=== PATIENT | male | born 1935 | race Caucasian/White ===

== ENCOUNTER 2020-11-08 12:02 | Emergency (ER) | payer MEDICARE, BC, OTHER ==
--- NOTE | 2020-11-08 13:03 | EDM.PDOC ---
ED HPI GENERAL MEDICAL PROBLEM - General Chief Complaint: Headache Stated Complaint: FALL 2 WEEKS AGO /HEAD PAIN Time Seen by Provider: 11/08/20 12:14 Source of Information: Reports: Patient, [place] Records, RN Notes Reviewed History Limitations: Reports: No Limitations - History of Present Illness INITIAL COMMENTS - FREE TEXT/NARRATIVE: Patient is an 85-year-old male who presents to the ED for the evaluation of his fall. Patient lives at [facility], and was reported to have an unwitnessed fall around Blanchard time. Patient does have a history of dementia. He st ates however that he slipped when he got out of the shower, then could not get up for some time., that seem to be sporadic. He notes no headache at this time. He did not have pain anywhere, but has been having ongoing issues with pounding headaches, that he points to the right side of his head review of the patient's notes from [facility] state that staff was concerned due to him sleeping most of the time, and they note that he gets belligerent at times. Apparently the patient's reported that he fell around Marli time and hit his head. The notes that she is seeing some behavior changes as well. Patient is on Eliquis, aspirin, and does take donepezil as well. They did try to have him evaluated at the [facility] but they referred him here for further evaluation as he probably needs a head CT. Patient has been appropriate while being in the ER with us. - Related Data Allergies Allergy/AdvReac Type Severity Reaction Status Date / Time No Known Allergies Allergy Verified 11/08/20 12:28 Home Meds: Home Meds Acetaminophen [Tylenol Extra Strength] 1,000 mg PO BID 11/08/20 [History] Apixaban [Eliquis] 5 mg PO BID 11/08/20 [History] Aspirin [Aspirin EC] 81 mg PO DAILY 11/08/20 [History] Cholecalciferol (Vitamin D3) [Vitamin D3] 2,000 intnl unit PO DAILY 11/08/20 [History] Donepezil HCl 10 mg PO BEDTIME 11/08/20 [History] Fexofenadine HCl [Felicia Allergy] 60 mg PO BID 11/08/20 [History] Folic Acid/Multivit-Min/Lutein [Multi-Vitamin Gummies] 2 tab PO DAILY 11/08/20 [History] Metoprolol Tartrate 75 mg PO BID 11/08/20 [History] Sertraline [Zoloft] 50 mg PO DAILY 11/08/20 [History] Tamsulosin HCl 0.4 mg PO DAILY 11/08/20 [History] atorvaSTATin [Lipitor] 40 mg PO BEDTIME 11/08/20 [History] glipiZIDE [Glipizide ER] 2.5 mg PO DAILY 11/08/20 [History] Past Medical History HEENT History: Reports: Other (See Below) Other HEENT History: allergic rhinitis Cardiovascular History: Reports: Afib, CAD, Heart Failure, High Cholesterol, Hypertension Genitourinary History: Reports: Prostate Disorder, Other (See Below) Other Genitourinary History: Nephrolithiasis Neurological History: Reports: CVA Psychiatric History: Reports: Dementia Endocrine/Metabolic History: Reports: Diabetes, Type II Hematologic History: Reports: Other (See Below) Other Hematologic History: blood transfusion Dermatologic History: Reports: Other (See Below) Other Dermatologic History: skin disorder - Past Surgical History HEENT Surgical History: Reports: Cataract Surgery Cardiovascular Surgical History: Reports: Coronary Artery Bypass, Other (See Below) Other Cardiovascular Surgeries/Procedures: pacemaker insertion GI Surgical History: Reports: Other (See Below) Other GI Surgeries/Procedures: splenectomy Male Surgical History: Reports: Lithotripsy (ESWL) Musculoskeletal Surgical History: Reports: Other (See Below) Other Musculoskeletal Surgeries/Procedures:: lumbar disc replacement Social & Family History - Tobacco Use Tobacco Use Status *Q: Former Tobacco User Years of Tobacco use: 30 Packs/Tins Daily: 1 Used Tobacco, but Quit: Yes Month/Year Tobacco Last Used: 2009 - Caffeine Use Caffeine Use: Reports: Coffee - Recreational Drug Use Recreational Drug Use: No ED ROS GENERAL - Review of Systems Review Of Systems: Comprehensive ROS is negative, except as noted in HPI. ED EXAM, HEAD INJURY - Physical Exam Exam: See Below Exam Limited By: No Limitations General Appearance: Alert, WD/WN, No Apparent Distress Head: Atraumatic, Normocephalic Nexus Criteria: No: Posterior, Midline Cervical Tenderness, Evidence of Intoxication, Altered Level of Consciousness, Focal Neurological Deficit, Painful Distraction Injuries Eyes: Bilateral Eye: EOMI, Normal Inspection, PERRL Throat/Mouth: Normal Inspection, Normal Lips, Normal Teeth, Normal Gums, Normal Oropharynx, Normal Voice, No Airway Compromise Neck: Non-Tender, Full Range of Motion, Normal Alignment, Normal Inspection Respiratory: No Respiratory Distress, Lungs Clear, Normal Breath Sounds, No Accessory Muscle Use, Chest Non-Tender Cardiovascular: Normal Peripheral Pulses, Regular Rate, Rhythm, No Edema GI/Abdominal Exam: Normal Bowel Sounds, Soft, Non-Tender, No Distention, No Mass Extremities: Normal Inspection, Normal Capillary Refill Neurologic: No Motor/Sensory Deficits, Alert, Normal Mood/Affect, Oriented x 3 Skin: Normal Color, Warm/Dry - Nay Coma Score Best Eye Response (Nay): (4) Open Spontaneously Best Verbal Response (Bethel): (5) Oriented Best Motor Response (Bethel): (6) Obeys Commands Nay Total: 15 Course - Vital Signs Last Recorded V/S: Last Vital Signs Temp 97 F 11/08/20 12:15 Pulse 67 11/08/20 12:15 Resp 18 11/08/20 12:15 BP 137/71 11/08/20 12:15 Pulse Ox 97 11/08/20 12:15 - Orders/Labs/Meds Orders: Active Orders 24 hr Category Date Time Status Head wo Cont [CT] Stat Exams 11/08/20 12:36 Ordered Labs: Laboratory Tests 11/08/20 11/08/20 Range/Units 12:17 12:17 WBC 8.71 (4.23-9.07) K/mm3 RBC 3.86 L (4.63-6.08) M/mm3 Hgb 12.5 L (13.7-17.5) gm/dl Hct 39.0 L (40.1-51.0) % MCV 101.0 H (79.0-92.2) fl MCH 32.4 H (25.7-32.2) pg MCHC 32.1 L (32.2-35.5) g/dl RDW Std Deviation 56.4 H (35.1-43.9) fL Plt Count 274 (163-337) K/mm3 MPV 10.4 (9.4-12.3) fl Neut % (Auto) 48.5 (34.0-67.9) % Lymph % (Auto) 34.1 (21.8-53.1) % Ellsworth % (Auto) 10.3 (5.3-12.2) % Eos % (Auto) 6.3 (0.8-7.0) Baso % (Auto) 0.7 (0.1-1.2) % Neut # (Auto) 4.22 (1.78-5.38) K/mm3 Lymph # (Auto) 2.97 (1.32-3.57) K/mm3 Ellsworth # (Auto) 0.90 H (0.30-0.82) K/mm3 Eos # (Auto) 0.55 H (0.04-0.54) K/mm3 Baso # (Auto) 0.06 (0.01-0.08) K/mm3 Sodium 143 (136-145) mEq/L Potassium 3.8 (3.5-5.1) mEq/L Chloride 106 (98-107) mEq/L Carbon Dioxide 28 (21-32) mEq/L Anion Gap 12.8 (5-15) BUN 25 H (7-18) mg/dL Creatinine 1.6 H (0.7-1.3) mg/dL Est Cr Clr Drug Dosing 32.71 mL/min Estimated GFR (MDRD) 41 (>60) mL/min BUN/Creatinine Ratio 15.6 (14-18) Glucose 164 H (83-115) mg/dL Calcium 8.4 L (8.5-10.1) mg/dL Total Bilirubin 0.2 (0.2-1.0) mg/dL AST 28 (15-37) U/L ALT 27 (16-63) U/L Alkaline Phosphatase 72 (46-116) U/L Total Protein 7.0 (6.4-8.2) g/dl Albumin 3.2 L (3.4-5.0) g/dl Globulin 3.8 gm/dL Albumin/Globulin Ratio 0.8 L (1-2) - Re-Assessments/Exams Free Text/Narrative Re-Assessment/Exam: 11/08/20 13:04 Patient presents to the ED for his ongoing behavioral change after a head injury around Marli time. For today's purposes we will get a head CT to make sure he has no bleed that would be exacerbating things, is likely he could be experiencing postconcussion syndrome, and having irritability and ongoing headaches after this. 11/08/20 13:[address] demonstrates no bleed or other focal abnormalities. There was an old stroke identified but no acute bleeds. Labs are also without remarkable findings. Patient will be discharged back to the [facility] with general recommendations. Departure - Departure Time of Disposition: 13:40 Disposition: Home, Self-Care 01 Condition: Good Clinical Impression: Post concussion syndrome - Discharge Information *PRESCRIPTION DRUG MONITORING PROGRAM REVIEWED*: No *COPY OF PRESCRIPTION DRUG MONITORING REPORT IN PATIENT ALPHONSO: No Instructions: Post-Concussion Syndrome, [id number] Referrals: PCP,Not In Area [Primary Care Provider] - Forms: ED Department Discharge Additional Instructions: You were evaluated in the ED today for your head injury. Your head CT demonstrated no acute bleeds or other focal abnormalities. You have been clinically diagnosed with post concussion syndrome. A concussion can affect how the brain works for a while. It may lead to headaches, changes in alertness, or loss of consciousness. Getting better from a concussion takes days to weeks or even months. You may be irritable, have trouble concentrating, or be unable to remember things. You may also have headaches, dizziness, or blurry vision. These problems will likely recover slowly. You may want to get help from family or friends for making important decisions. You may use acetaminophen (Tylenol) 500mg or 600 mg ibuprofen (Advil/Motrin) Q6H for a headache. You DO NOT need to stay in bed. Light activity around the home is okay. But avoid exercise, lifting weights, or other heavy activity. You may want to keep your diet light if you have nausea and vomiting. Drink fluids to stay hydrated. As long as you have symptoms, avoid sports activities, operating machines, being overly active, doing physical labor. Ask your doctor when you can return to your activities. If symptoms DO NOT go away or are not improving after 2 or 3 weeks, talk to your doctor. Call the doctor if you have: -A stiff neck -Fluid and blood leaking from your nose or ears -A hard time waking up or have become more sleepy -A headache that is getting worse, lasts a long time, or is not relieved by [id number] pain relievers -Fever -Vomiting more than 3 times -Problems walking or talking -Changes in speech (slurred, difficult to understand, does not make sense) -Problems thinking straight -Seizures (jerking your arms or legs without control) -Changes in behavior or unusual behavior -Double vision Please return to the ED if your symptoms change or worsen. Sepsis Event Note (ED) - Evaluation Sepsis Screening Result: No Definite Risk - Focused Exam Vital Signs: Vital Signs Temp Pulse Resp BP Pulse Ox 11/08/20 12:15 97 F 67 18 137/71 97 - My Orders Last 24 Hours: My Active Orders 11/08/20 12:36 Head wo Cont [CT] Stat - Assessment/Plan Last 24 Hours: My Active Orders 11/08/20 12:36 Head wo Cont [CT] Stat
--- NOTE | 2020-11-08 13:46 | CT ---
Head CT Technique: Multiple axial sections through the brain were obtained. Intravenous contrast was not utilized. Comparison: Prior head CT study of 08/30/19. Findings: Ventricles along with basal cisterns and sulci over the convexities are moderately prominent. Old infarcts are seen in the subcortical white matter within the parietal region, a small area of old infarct is noted with the left frontal region as well as within the right parietal region. These findings are all felt to be fairly stable from prior exam. Cerebellum shows evidence of atrophy. There is no findings of intracranial hemorrhage. No midline shift or mass-effect is appreciated. Bone window settings were reviewed which show no acute calvarial abnormality. No acute abnormality within the visualized paranasal sinuses or mastoid sinuses are seen. Impression: 1. Senescent change as noted above which is fairly stable from prior study. 2. Nothing acute is appreciated. Diagnostic code #2
== END 2020-11-08 14:09 | disposition home or self-care (01) ==
LOC: JD.ED 12:02
DX: F07.81 Postconcussional syndrome (principal); I48.91 Unspecified atrial fibrillation; I25.10 Atherosclerotic heart disease of native coronary artery without angina pectoris; I11.0 Hypertensive heart disease with heart failure; I50.9 Heart failure, unspecified; E78.00 Pure hypercholesterolemia, unspecified; N42.9 Disorder of prostate, unspecified; F03.90 Unspecified dementia, unspecified severity, without behavioral disturbance, psychotic disturbance, mood disturbance, and anxiety; E11.9 Type 2 diabetes mellitus without complications; Z87.891 Personal history of nicotine dependence; Z79.01 Long term (current) use of anticoagulants; Z79.82 Long term (current) use of aspirin; Z79.84 Long term (current) use of oral hypoglycemic drugs; Z79.899 Other long term (current) drug therapy; Z86.73 Personal history of transient ischemic attack (TIA), and cerebral infarction without residual deficits
CPT/HCPCS: 36415; 70450; 70450-26; 80053; 85025; 99284-25

== ENCOUNTER 2020-11-30 14:07 | Emergency (ER) | payer MEDICARE, BC ==
[2020-11-30] MEDS ORDERED: Sodium Chloride 0.9% 10 ML Syringe FLUSH PRN ×2 (14:55→15:42)
--- NOTE | 2020-11-30 15:22 | EDM.PDOC ---
ED HPI GENERAL MEDICAL PROBLEM - General Chief Complaint: Genitourinary Problem Stated Complaint: URINARY PROBLEMS Time Seen by Provider: 11/30/20 14:11 Source of Information: Reports: Patient, Old Records, Provider, RN Notes Reviewed History Limitations: Reports: No Limitations - History of Present Illness INITIAL COMMENTS - FREE TEXT/NARRATIVE: Patient is an 85 year old male sent to the ER from [facility] with c/o hematuria as well as worsening of his dementia. He had a urinalysis completed on November 27 which showed 2+ protein, 1+ bili, 3+ occult blood, trace leukocyte esterase. Micro became available on November 28 and showed 75-100 RBCs, 50-75 WBCs, moderate amorphous sediment, moderate bacteria. Patient was started on ciprofloxacin and urine was sent for culture. Thus far, urine has not grown out any bacteria. He was sent to the ER as his urine is becoming more pink in color. His PCP, Ariadna also, reports that the patient had a cystoscopy done about 1 year ago. They did find some growths within his bladder, however it was determined that they were benign. Patient denies any dysuria, flank pain, abdominal pain, fever, chills, nausea, or vomiting. Patient currently resides at [facility] assisted living with his , Whitley. Although, he does have a history of dementia, his confusion has worsened. - Related Data Allergies Allergy/AdvReac Type Severity Reaction Status Date / Time No Known Allergies Allergy Verified 11/30/20 14:22 Home Meds: Home Meds Acetaminophen [Tylenol Extra Strength] 1,000 mg PO BID 11/08/20 [History] Apixaban [Eliquis] 5 mg PO BID 11/08/20 [History] Aspirin [Aspirin EC] 81 mg PO DAILY 11/08/20 [History] Cholecalciferol (Vitamin D3) [Vitamin D3] 2,000 intnl unit PO DAILY 11/08/20 [History] Donepezil HCl 10 mg PO BEDTIME 11/08/20 [History] Fexofenadine HCl [Felicia Allergy] 60 mg PO BID 11/08/20 [History] Folic Acid/Multivit-Min/Lutein [Multi-Vitamin Gummies] 2 tab PO DAILY 11/08/20 [History] Ibuprofen 1 - 2 tab PO Q4HR 11/08/20 [History] Metoprolol Tartrate 75 mg PO BID 11/08/20 [History] Sertraline [Zoloft] 50 mg PO DAILY 11/08/20 [History] Tamsulosin HCl 0.4 mg PO DAILY 11/08/20 [History] glipiZIDE [Glipizide ER] 2.5 mg PO DAILY 11/08/20 [History] atorvaSTATin [Lipitor] 40 mg PO BEDTIME 11/30/20 [History] Past Medical History HEENT History: Reports: Other (See Below) Other HEENT History: allergic rhinitis Cardiovascular History: Reports: Afib, CAD, Heart Failure, High Cholesterol, Hypertension Genitourinary History: Reports: Prostate Disorder, Other (See Below) Other Genitourinary History: Nephrolithiasis Neurological History: Reports: Concussion, CVA Psychiatric History: Reports: Dementia Endocrine/Metabolic History: Reports: Diabetes, Type II Hematologic History: Reports: Other (See Below) Other Hematologic History: blood transfusion Dermatologic History: Reports: Other (See Below) Other Dermatologic History: skin disorder - Past Surgical History HEENT Surgical History: Reports: Cataract Surgery Cardiovascular Surgical History: Reports: Coronary Artery Bypass, Other (See Below) Other Cardiovascular Surgeries/Procedures: pacemaker insertion GI Surgical History: Reports: Other (See Below) Other GI Surgeries/Procedures: splenectomy Male Surgical History: Reports: Lithotripsy (ESWL) Musculoskeletal Surgical History: Reports: Other (See Below) Other Musculoskeletal Surgeries/Procedures:: lumbar disc replacement Social & Family History - Tobacco Use Tobacco Use Status *Q: Former Tobacco User Years of Tobacco use: 10 Packs/Tins Daily: 1 Used Tobacco, but Quit: Yes Month/Year Tobacco Last Used: 11/2014 Second Hand Smoke Exposure: No - Caffeine Use Caffeine Use: Reports: Coffee, Soda - Recreational Drug Use Recreational Drug Use: No ED ROS GENERAL - Review of Systems Review Of Systems: See Below Constitutional: Reports: No Symptoms. Denies: Fever, Chills, Weakness HEENT: Reports: No Symptoms Respiratory: Reports: No Symptoms. Denies: Shortness of Breath, Cough Cardiovascular: Reports: No Symptoms. Denies: Chest Pain Endocrine: Reports: No Symptoms GI/Abdominal: Reports: No Symptoms. Denies: Nausea, Vomiting : Reports: No Symptoms Musculoskeletal: Reports: No Symptoms Skin: Reports: No Symptoms Neurological: Reports: Confusion. Denies: Syncope, Weakness Psychiatric: Reports: No Symptoms Hematologic/Lymphatic: Reports: No Symptoms Immunologic: Reports: No Symptoms ED EXAM, RENAL/ - Physical Exam Exam: See Below Exam Limited By: No Limitations General Appearance: Alert, WD/WN, No Apparent Distress Respiratory/Chest: No Respiratory Distress, Lungs Clear, Normal Breath Sounds, No Accessory Muscle Use, Chest Non-Tender Cardiovascular: Normal Peripheral Pulses, Regular Rate, Rhythm, No Edema, No Gallop, No JVD, No Murmur, No Rub GI/Abdominal: Normal Bowel Sounds, Soft, Non-Tender, No Organomegaly, No Distention, No Abnormal Bruit, No Mass Back Exam: Normal Inspection, Full Range of Motion. No: CVA Tenderness (L), CVA Tenderness (R) Neurological: Alert, CN II-XII Intact, Normal Cognition, Normal Gait, Normal Reflexes, No Motor/Sensory Deficits Psychiatric: Normal Affect, Normal Mood Skin Exam: Warm, Dry, Intact, Normal Color, No Rash Course - Vital Signs Last Recorded V/S: Last Vital Signs Temp 97.4 F 11/30/20 14:12 Pulse 60 11/30/20 16:13 Resp 16 11/30/20 16:13 BP 140/73 11/30/20 16:13 Pulse Ox 98 11/30/20 16:13 - Orders/Labs/Meds Labs: Laboratory Tests 11/30/20 11/30/20 11/30/20 Range/Units 14:30 15:05 15:05 WBC 8.12 (4.23-9.07) K/mm3 RBC 3.88 L (4.63-6.08) M/mm3 Hgb 12.4 L (13.7-17.5) gm/dl Hct 38.4 L (40.1-51.0) % MCV 99.0 H (79.0-92.2) fl MCH 32.0 (25.7-32.2) pg MCHC 32.3 (32.2-35.5) g/dl RDW Std Deviation 53.7 H (35.1-43.9) fL Plt Count 282 (163-337) K/mm3 MPV 10.2 (9.4-12.3) fl Neut % (Auto) 37.8 (34.0-67.9) % Lymph % (Auto) 42.0 (21.8-53.1) % Owsley % (Auto) 13.7 H (5.3-12.2) % Eos % (Auto) 5.4 (0.8-7.0) Baso % (Auto) 1.0 (0.1-1.2) % Neut # (Auto) 3.07 (1.78-5.38) K/mm3 Lymph # (Auto) 3.41 (1.32-3.57) K/mm3 Owsley # (Auto) 1.11 H (0.30-0.82) K/mm3 Eos # (Auto) 0.44 (0.04-0.54) K/mm3 Baso # (Auto) 0.08 (0.01-0.08) K/mm3 Sodium 144 (136-145) mEq/L Potassium 4.1 (3.5-5.1) mEq/L Chloride 108 H (98-107) mEq/L Carbon Dioxide 28 (21-32) mEq/L Anion Gap 12.1 (5-15) BUN 27 H (7-18) mg/dL Creatinine 1.5 H (0.7-1.3) mg/dL Est Cr Clr Drug Dosing 34.89 mL/min Estimated GFR (MDRD) 45 (>60) mL/min BUN/Creatinine Ratio 18.0 (14-18) Glucose 99 (83-115) mg/dL Calcium 9.1 (8.5-10.1) mg/dL Total Bilirubin 0.3 (0.2-1.0) mg/dL AST 23 (15-37) U/L ALT 26 (16-63) U/L Alkaline Phosphatase 67 (46-116) U/L C-Reactive Protein <0.2 (<1.0) mg/dL Total Protein 7.3 (6.4-8.2) g/dl Albumin 3.3 L (3.4-5.0) g/dl Globulin 4.0 gm/dL Albumin/Globulin Ratio 0.8 L (1-2) Urine Color Ramonita H (Yellow) Urine Appearance Cloudy H (Clear) Urine pH 5.5 (5.0-8.0) Ur Specific Chalmers > or = 1.030 (1.005-1.030) Urine Protein 3+ H (Negative) Urine Glucose (UA) Negative (Negative) Urine Ketones Negative (Negative) Urine Occult Blood 3+ H (Negative) Urine Nitrite Negative (Negative) Urine Bilirubin 1+ H (Negative) Urine Urobilinogen 0.2 (0.2-1.0) Ur Leukocyte Esterase Trace H (Negative) Urine RBC >100 H (0-5) /hpf Urine WBC 10-20 H (0-5) /hpf Ur Squamous Epith Cells 0-5 (0-5) /hpf Urine Bacteria Few (FEW) /hpf Urine Mucus Few (FEW) /hpf Meds: Medications Discontinued Medications Generic Name Dose Route Start Last Admin Trade Name Freq PRN Reason Stop Dose Admin Sodium Chloride 500 mls @ 999 mls/hr 11/30/20 15:59 11/30/20 16:12 Normal Saline IV 11/30/20 16:29 999 mls/hr NOW STA Administration Sodium Chloride 100 mls @ 60 mls/hr 11/30/20 16:15 11/30/20 16:04 Normal Saline IV 60 mls/hr ASDIRECTED TAYLOR Administration Iopamidol 100 ml 11/30/20 15:42 11/30/20 16:03 [id number] (61%) IVPUSH 11/30/20 15:43 100 ml ONETIME ONE Administration Sodium Chloride 10 ml 11/30/20 14:55 11/30/20 15:06 Saline Flush FLUSH 10 ml ASDIRECTED PRN Administration Keep Vein Open Sodium Chloride 10 ml 11/30/20 15:42 11/30/20 16:03 Saline Flush FLUSH 10 ml ONETIME PRN Administration Keep Vein Open - Re-Assessments/Exams Free Text/Narrative Re-Assessment/Exam: Pt is a 85 year old male presenting to the ER from [facility] at the request of his PCP, Selena Milton, for evaluation with regard to hematuria. He was started on Cipro 2 days ago for a UTI, but continued to have a significant amount of blood in his urine. He is feeling well and exam is unremarkable. I have ordered CBC, CMP, CRP, urinalysis, and a CT abdomen/pelvis with IV contrast only. 11/30/20 16:55 Hematology was grossly unremarkable. Urinalysis shows 3+ protein, 3+ occult blood, 1+ bili, trace leukocyte esterace, >100 RBC, 10-20 WBC, and few bacteria. Previous urine micro showed many bacteria, therefore I feel like the Cipro is working, however will require more time to clear up the cystitis. CT of the abdomen pelvis showed nonobstructing calculi within both kidneys as well as a cyst on the right kidney. There is no ureteral dilatation or bladder abnormalities seen. 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 Small calcified gallstones in the gallbladder. Called and spoke with FABIOLA Benoit. She will call [facility] to have them resume the Cipro and she will follow up with him in the clinic next week. Discussed this plan with the patient and his and they are in agreement. Discharge instructions as documented. Departure - Departure Time of Disposition: 17:22 Disposition: Home, Self-Care 01 Condition: Good Clinical Impression: UTI, Urinary tract infectious disease - Discharge Information *PRESCRIPTION DRUG MONITORING PROGRAM REVIEWED*: No *COPY OF PRESCRIPTION DRUG MONITORING REPORT IN PATIENT ALPHONSO: No Instructions: Urinary Tract Infection, Adult Referrals: Shameka Milton PA-C [Primary Care Provider] - Forms: ED Department Discharge Additional Instructions: You were seen in the emergency department for evaluation with regards to blood in your urine. Work-up included blood work, urinalysis, and a CT scan of the abdomen pelvis. Results of the CT scan that show no abnormalities that would cause the blood in the urine. As we discussed, this is likely cystitis related to urinary tract infection. Recommend that you continue the Cipro as previously prescribed by your primary care provider. Follow-up with her in the clinic next week. Return to ER for any new or worsening symptoms of concern. Sepsis Event Note (ED) - Evaluation Sepsis Screening Result: No Definite Risk
[2020-11-30] MEDS ORDERED: Iopamidol 612 MG/ML 100 ML Bottle IVPUSH ONE (15:42)
[2020-11-30] MEDS ORDERED: Sodium Chloride 0.9% 500 ML IV STA (15:59)
[2020-11-30] MEDS ORDERED: Sodium Chloride 0.9% 100 ML IV SCH (16:15)
--- NOTE | 2020-11-30 16:32 | CT ---
CT abdomen and pelvis Multiple axial sections were obtained from slightly below the liver inferiorly to the iliac crest after contrast administration at 40 seconds. Additional images were obtained from below the top of the liver inferiorly to the pubic symphysis. Reconstructed coronal and sagittal images were obtained. Comparison: No prior abdominal imaging is available. Findings: Cyst is identified within the right kidney measuring approximately 3.6 cm. Small nonobstructing calculi are seen within both kidneys. Largest calculi is within the mid left kidney measuring about 1.0 cm. Ureters show no dilatation. Delayed images show contrast within portions of the ureters as well as within the bladder. Visualized lung bases show nothing acute. Visualized liver shows no discrete abnormality. Normal spleen is not seen. There are areas of accessory splenic tissue being noted. Pancreas is within normal limits. Gallbladder contains several calcified gallstones. Abdominal aorta shows diffuse atherosclerotic calcification. Mid abdominal aorta shows evidence of mild aneurysmal dilatation at 2.6 cm. No retroperitoneal adenopathy or mesenteric abnormalities are appreciated. Appendix is felt to be seen and is normal in size. No pelvic mass or adenopathy is seen. Prostate gland shows calcifications. Bone window settings were reviewed which show compression deformity within L4 which is most likely old. Lesser degenerative change is seen within other portions of the spine. Note is made of mild spondylolisthesis defects at L4-5. Impression: 1. Nonobstructing calculi within both kidneys. Cyst within the right kidney. No ureteral dilatation or bladder abnormalities are definitely seen. 2. 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 3. Small calcified gallstones within the gallbladder. 4. Other findings as noted above which are felt to be incidental. Diagnostic code #3
== END 2020-11-30 17:38 | disposition home or self-care (01) ==
LOC: JD.ED 14:07
DX: N39.0 Urinary tract infection, site not specified (principal); I48.91 Unspecified atrial fibrillation; I25.10 Atherosclerotic heart disease of native coronary artery without angina pectoris; E78.00 Pure hypercholesterolemia, unspecified; N42.9 Disorder of prostate, unspecified; I11.0 Hypertensive heart disease with heart failure; I50.9 Heart failure, unspecified; F03.90 Unspecified dementia, unspecified severity, without behavioral disturbance, psychotic disturbance, mood disturbance, and anxiety; E11.9 Type 2 diabetes mellitus without complications; Z79.84 Long term (current) use of oral hypoglycemic drugs; Z87.891 Personal history of nicotine dependence; Z79.82 Long term (current) use of aspirin; Z79.01 Long term (current) use of anticoagulants; Z79.899 Other long term (current) drug therapy; Z86.73 Personal history of transient ischemic attack (TIA), and cerebral infarction without residual deficits
CPT/HCPCS: 36415; 74177; 80053; 81001; 85025; 86140; 87086; 99284; J7030; Q9967; 99283